=== PATIENT | male | born 2000 | race African-American/Black ===

== ENCOUNTER 2022-12-21 19:46 | Emergency (ER) | payer SELFPAY ==
[2022-12-21] MEDS ORDERED: Bupivacaine PF 0.5% 30 ML VIAL ONE (20:08)
[2022-12-21] MEDS ORDERED: Lidocaine 1% (PF) 30 ML VIAL ONE (20:08)
== END 2022-12-21 20:46 | disposition home or self-care (01) ==
LOC: CSHERS 19:46
DX: K02.9 Dental caries, unspecified (principal); F17.290 Nicotine dependence, other tobacco product, uncomplicated
CPT/HCPCS: 64400; J2001; S0020

== ENCOUNTER 2023-06-12 19:51 | Emergency (ER) | payer SELFPAY | END 2023-06-12 21:56 | disposition home or self-care (01) | LOC: CSHERS 19:51 | DX: L03.116 Cellulitis of left lower limb (principal); L02.416 Cutaneous abscess of left lower limb; F17.290 Nicotine dependence, other tobacco product, uncomplicated | CPT/HCPCS: 99283 ==